=== PATIENT | male | born 1990 | race Caucasian/White ===

== ENCOUNTER → 2024-03-21 | Outpatient (CLI) | payer OTHER, SELFPAY | LOC: M SOG 07:52 | PROVIDERS: ATTEND Physician Assistant | DX: M25.532 Pain in left wrist (principal) ==

== ENCOUNTER 2024-06-18 08:41 | Day surgery (SDC) | payer OTHER ==
[~2024-06-18] VITALS: Ht 185.4 cm; Wt 141.9 kg
[2024-06-18] MEDS ORDERED: LR 1,000 ML IV SCH (09:15)
[2024-06-18] MEDS ORDERED: ceFAZolin SOD 2 GM IV ONCE IV ONE (09:25)
[2024-06-18] MEDS: ceFAZolin SOD 3 GM in DEXTROSE 5% (D5W) MINI-BAG PLU 1... IV ONE (09:51)
[2024-06-18] MEDS ORDERED: HYDROmorphone HCL 2MG/ML 1ML VIAL As Ordered ONE (09:59)
[2024-06-18] MEDS ORDERED: MIDAZOLAM INJ 2MG/2ML VIAL As Ordered ONE (10:00)
[2024-06-18] MEDS ORDERED: propofoL 200 MG/20 ML VIAL As Ordered ONE (10:11)
[2024-06-18] MEDS ORDERED: ONDANSETRON 4MG 2ML VIAL As Ordered ONE (10:11)
[2024-06-18] MEDS ORDERED: ACETAMINOPHEN 1000MG/100ML IV BAG As Ordered ONE (10:11)
[2024-06-18] MEDS ORDERED: LIDOCAINE 2% 100MG/5ML SDV (FOR ANES.) As Ordered ONE (10:11)
[2024-06-18] MEDS ORDERED: KETOROLAC 60MG 2ML VIAL As Ordered ONE (10:11)
[2024-06-18] MEDS ORDERED: PHENYLephrine 500MCG 5ML (100MCG/ML) SYRINGE As Ordered ONE (10:41)
[2024-06-18] MEDS: BACITRACIN OINTMENT 30GM TUBE As Ordered ONE (10:49)
[2024-06-18] MEDS ORDERED: ONDANSETRON 4MG 2ML VIAL IV PRN (11:10)
[2024-06-18] MEDS ORDERED: fentaNYL 100 MCG/2 ML INJECTION IV PRN (11:10)
[2024-06-18] MEDS ORDERED: oxyCODONE 5MG TAB PO PRN (11:10)
[2024-06-18] MEDS ORDERED: MORPHINE 2 MG/ML 1ML VIAL IV PRN (11:10)
[2024-06-18] MEDS ORDERED: PERCOCET PO (11:12)
[2024-06-18 11:50] VITALS: BP 121/73; TEMP 97.2; O2SAT 99
== END 2024-06-18 12:07 | disposition home or self-care (01) ==
LOC: M SDC 08:41
PROVIDERS: ATTEND Orthopaedic Surgery Hand Surgery
DX: M25.532 Pain in left wrist (principal); E66.9 Obesity, unspecified; Z91.013 Allergy to seafood
CPT/HCPCS: 29846; J0131; J0665; J0690; J1100; J1171; J1885; J2250; J2371; J2405